=== PATIENT | female | born 2000 | race African-American/Black ===

== ENCOUNTER 2020-03-06 19:08 | Emergency (ER) | payer SELFPAY ==
[~2020-03-06] VITALS: Ht 162.6 cm; Wt 45.4 kg
--- NOTE | 2020-03-06 19:28 | NUR ---
ED Nurse Note: pt presents to ED c/o suprapubic abd px onset last PM, but has been constant and "unbearable" since 12 PM today. pt also reports 1 episode of vomiting around 1500 today. pt denies dysuria, or diarrhea but has noticed blood in her urine, states she is unsure whether or not she is menstruating.
[2020-03-06 19:30] VITALS: BP 110/58
--- NOTE | 2020-03-06 19:43 | NUR ---
ED Nurse Note: pt refusing IM Toradal, states she does not like needles. prefers PO meds. ERMD notified
[2020-03-06] MEDS ORDERED: Ketorolac 60mg Inj IM ONE (19:45)
[2020-03-06 19:50] LABS: APPEARANCE,URINE SLIGHTLY CLOUDY; BILIRUBIN, URINE NEGATIVE (NEGATIVE); COLOR,URINE PALE YELLOW; GLUCOSE, URINE (UA) NEGATIVE (NEGATIVE); KETONES,URINE 3+ (NEGATIVE); LEUKOCYTE ESTERASE ,URINE 1+ (NEGATIVE); NITRITE,URINE NEGATIVE (NEGATIVE); PH,URINE 5 (4.5-8.0); PROTEIN,URINE 2+ (NEGATIVE); UROBILINOGEN,URINE NORMAL MG/DL (0.0-1.0)
[2020-03-06 19:52] LABS: BASOPHILS % (AUTO) 0.5 % (0.0-2.0); HEMATOCRIT 36.7 % (37.0-47.0); HEMOGLOBIN 12.3 G/DL (12.0-16.0); LYMPHOCYTES % (AUTO) 12.4 % (20.0-45.0); MEAN CORPUSCULAR VOLUME 98 FL (80-99); NEUTROPHILS % (AUTO) 82.1 % (45.0-75.0); PLATELET COUNT 252 K/UL (150-450); RED BLOOD COUNT 3.73 M/UL (4.20-5.40); RED CELL DISTRIBUTION WIDTH 14.1 % (11.6-14.8)
--- NOTE | 2020-03-06 19:54 | NUR ---
ED Nurse Note: pt ambulated down to US with shipping technician
[2020-03-06 20:06] LABS: ANION GAP 9 mmol/L (5-15); BLOOD UREA NITROGEN 9 mg/dL (7-18); CALCIUM 8.6 MG/DL (8.5-10.1); CARBON DIOXIDE 25 MMOL/L (21-32); CHLORIDE 102 MMOL/L (98-107); CREATININE 0.9 MG/DL (0.55-1.30); POTASSIUM 3.4 MMOL/L (3.5-5.1); SODIUM 136 MMOL/L (136-145)
[2020-03-06 20:11] LABS: ALANINE AMINOTRANSFERASE 12 U/L (12-78); ALBUMIN 4.3 G/DL (3.4-5.0); ALBUMIN/GLOBULIN RATIO 1.4 (1.0-2.7); ALKALINE PHOSPHATASE 69 U/L (46-116); ASPARTATE AMINO TRANSFERASE 19 U/L (15-37); BILIRUBIN,TOTAL 0.4 MG/DL (0.2-1.0)
[2020-03-06] MEDS ORDERED: Cephalexin 500mg cap ORAL ONE (21:00)
[2020-03-06] MEDS ORDERED: NORCO 5-325 TA1 EAC1 ORAL (21:04)
[2020-03-06] MEDS ORDERED: CEPHALEXIN500 MG ORAL (21:04)
--- NOTE | 2020-03-06 21:14 | Diagnostic Imaging Report ---
EXAM: US Pelvis Transabdominal, Complete CLINICAL HISTORY: ABD PAIN TECHNIQUE: Real-time complete transabdominal pelvic ultrasound with image documentation. COMPARISON: No relevant prior studies available. FINDINGS: Limitations: Patient refused endovaginal examination limiting assessment. Uterus/cervix: Uterus is normal. Normal endometrial stripe thickness. No myometrial mass. Right ovary: Bilateral ovaries are identified in demonstrate blood flow to them. No adnexal masses. Left ovary: See above. Free fluid: Free fluid adjacent to the right ovary and within the posterior cul-de-sac. This is nonspecific but may be from a ruptured ovarian cyst. No enlarged ovarian cysts are seen however. Bladder: Unremarkable as visualized. Wall is normal thickness for degree of distention. IMPRESSION: 1. Free fluid adjacent to the right ovary and within the posterior cul- de-sac. This is nonspecific but may be from a ruptured ovarian cyst although no enlarged ovarian cysts or adnexal masses are seen.
[2020-03-06 21:15] VITALS: BP 110/58
--- NOTE | 2020-03-06 21:15 | NUR ---
ER DISCHARGE NOTE: Patient is cleared to be discharged per ERMD, pt is aox4, on room air, with stable vital signs. pt was given dc and prescription instructions, pt was able to verbalize understanding, pt id band removed without complications. pt is able to ambulate with steady gait. pt took all belongings.
--- NOTE | 2020-03-09 01:19 | Emergency Room Report ---
History of Present Illness General Chief Complaint: Abdominal Pain Source: Patient Present Illness HPI Patient is a 19-year-old female presents after increased lower abdominal pain. Reports having increased lower abdominal pain. Denies any diarrhea. Reports having some increased discharge. States she had previous diagnosis of bacterial vaginosis. Denies any fever. Is unsure if she is beginning her menses. Had some recent irregular menses. Reports having some dysuria. Allergies: Coded Allergies: No Known Allergies (Unverified , 03/06/20) COVID-19 Screening Contact w/high risk pt: No Experienced COVID-19 symptoms?: No COVID-19 Testing performed MANAGER STARS: No Patient History Past Medical History: see triage record Last Menstrual Period: UNK Now: No : 0 Para: 0 Reviewed Nursing Documentation: PMH: Agreed; PSxH: Agreed Nursing Documentation-PMH Past Medical History: No Stated History Review of Systems All Other Systems: negative except mentioned in HPI Physical Exam Vital Signs Date Time Temp Pulse Resp B/P (MAP) Pulse Ox O2 Delivery O2 Flow Rate FiO2 03/06/20 19:14 98.1 77 18 110/58 (75) 99 Room Air Sp02 EP Interpretation: reviewed, normal General Appearance: normal inspection, well appearing, no apparent distress, alert, GCS 15, non-toxic Head: atraumatic ENT: normal ENT inspection, hearing grossly normal, normal voice Neck: normal inspection, full range of motion, supple, no bony tend Respiratory: normal inspection, lungs clear, normal breath sounds, no respiratory distress, no retraction, no wheezing Cardiovascular #1: regular rate, rhythm, no edema Gastrointestinal: normal inspection, normal bowel sounds, soft, no guarding, no hernia, tenderness - Tenderness to the lower abdomen. Genitourinary: no CVA tenderness Musculoskeletal: normal inspection, back normal, normal range of motion Neurologic: alert, responsive, speech normal, normal inspection Psychiatric: normal inspection, judgement/insight normal, mood/affect normal Medical Decision Making Diagnostic Impression: Primary Impression: Ovarian cyst rupture Additional Impression: Urinary tract infection ER Course Patient presented for right-sided pelvic pain. Diagnosis include was not limited to urinary tract infection, ovarian cyst rupture, pelvic inflammatory disease, among others. Because of complexity of patient's case laboratory tests and imaging studies were ordered. Laboratory testing showed mildly elevated white blood count as well as some evidence of urinary infection. Patient was given antibiotics. Patient did refuse IV was given oral antibiotics. Pelvic ultrasound showed some free fluid consistent with recent ruptured ovarian cyst. Patient is advised to follow-up with her [employer] for recheck. Patient was given pain medications with improvement. She is advised to return if worse. The patient is advised to follow up with primary care doctor in 1-2 days. Patient is advised to return if any worsening condition or if any changes in status that are concerning. This report is dictated with [employer] family resource coordinator software which may occasionally lead to discrepancies related to use of this software. Labs Test 03/06/20 19:21 03/06/20 19:40 Urine Color Pale yellow Urine Appearance Slightly cloudy Urine pH 5 (4.5-8.0) Urine Specific [place] 1.020 (1.005-1.035) Urine Protein 2+ (NEGATIVE) Urine Glucose (UA) Negative (NEGATIVE) Urine Ketones 3+ (NEGATIVE) Urine Blood 5+ (NEGATIVE) Urine Nitrite Negative (NEGATIVE) Urine Bilirubin Negative (NEGATIVE) Urine Urobilinogen Normal MG/DL (0.0-1.0) Urine Leukocyte Esterase 1+ (NEGATIVE) Urine RBC Tntc /HPF (0 - 2) Urine WBC 2-4 /HPF (0 - 2) Urine Squamous Epithelial Cells Many /LPF (NONE/OCC) Urine Bacteria Moderate /HPF (NONE) Urine HCG, Qualitative Negative (NEGATIVE) White Blood Count 13.0 K/UL (4.8-10.8) Red Blood Count 3.73 M/UL (4.20-5.40) Hemoglobin 12.3 G/DL (12.0-16.0) Hematocrit 36.7 % (37.0-47.0) Mean Corpuscular Volume 98 FL (80-99) Mean Corpuscular Hemoglobin 33.1 PG (27.0-31.0) Mean Corpuscular Hemoglobin Concent 33.7 G/DL (32.0-36.0) Red Cell Distribution Width 14.1 % (11.6-14.8) Platelet Count 252 K/UL (150-450) Mean Platelet Volume 7.3 FL (6.5-10.1) Neutrophils (%) (Auto) 82.1 % (45.0-75.0) Lymphocytes (%) (Auto) 12.4 % (20.0-45.0) Monocytes (%) (Auto) 4.0 % (1.0-10.0) Eosinophils (%) (Auto) 1.0 % (0.0-3.0) Basophils (%) (Auto) 0.5 % (0.0-2.0) Sodium Level 136 MMOL/L (136-145) Potassium Level 3.4 MMOL/L (3.5-5.1) Chloride Level 102 MMOL/L (98-107) Carbon Dioxide Level 25 MMOL/L (21-32) Anion Gap 9 mmol/L (5-15) Blood Urea Nitrogen 9 mg/dL (7-18) Creatinine 0.9 MG/DL (0.55-1.30) Estimat Glomerular Filtration Rate > 60 mL/min (>60) Glucose Level 125 MG/DL (74-106) Calcium Level 8.6 MG/DL (8.5-10.1) Total Bilirubin 0.4 MG/DL (0.2-1.0) Aspartate Amino Transf (AST/SGOT) 19 U/L (15-37) Alanine Aminotransferase (ALT/SGPT) 12 U/L (12-78) Alkaline Phosphatase 69 U/L (46-116) Total Protein 7.3 G/DL (6.4-8.2) Albumin 4.3 G/DL (3.4-5.0) Globulin 3.0 g/dL Albumin/Globulin Ratio 1.4 (1.0-2.7) Lipase 314 U/L (73-393) Last Vital Signs Date Time Temp Pulse Resp B/P (MAP) Pulse Ox O2 Delivery O2 Flow Rate FiO2 03/06/20 21:15 98.1 03/06/20 21:15 75 18 110/58 99 Room Air Status: improved Disposition: HOME, SELF-CARE Condition: Stable Scripts Hydrocodone Bit/Acetaminophen 5-325* (NORCO 5-325 TABLET*) 1 Each Tablet 1 TAB ORAL Q4H PRN for FOR PAIN, #12 TAB 0 Refills Prov: Henri Lay MD 03/06/20 Cephalexin* (KEFLEX*) 500 Mg Capsule 500 MG ORAL EVERY 6 HOURS, #28 CAP Prov: Henri Lay MD 03/06/20 Patient Instructions: Abdominal Pain, Adult Additional Instructions: Follow up with your doctor for recheck in 1-2 days. Return if worse. Henri Lay MD Mar 09, 2020 01:19
[2020-03-10] MEDS ORDERED: NITROFURANTOIN100 M2 ORAL (14:00)
== END 2020-03-06 21:15 | disposition home or self-care (01) ==
LOC: EMR 19:34
DX: N39.0 Urinary tract infection, site not specified (principal); N83.8 Other noninflammatory disorders of ovary, fallopian tube and broad ligament
CPT/HCPCS: 36415; 76856; 80053; 81003; 81025; 83690; 85025; 87086; 87181; 99284